=== PATIENT | female | born 1980 | race Caucasian/White ===

== ENCOUNTER → 2017-02-20 | Outpatient (CLI) | payer BC ==
[~2017-02-20] MED LIST: CETI10TA84 PO; DOCU-94 PO; FERR1TAB23 PO; PRENTAB26 PO
== END | disposition home or self-care (01) ==
LOC: C.LABSPEC 10:57
PROVIDERS: ATTEND Obstetrics & Gynecology
DX: Z34.03 Encounter for supervision of normal first pregnancy, third trimester (principal)

== ENCOUNTER 2017-03-20 09:09 | Inpatient (IN) | payer BC ==
[~2017-03-20] VITALS: Ht 172.7 cm; Wt 86.4 kg
[2017-03-20] MEDS ORDERED: LACTATED RINGER'S 1000ML 1,000 ML IV SCH (09:40)
[2017-03-20] MEDS ORDERED: LACTATED RINGER'S 1000ML 1,000 ML IV PRN (09:40)
[2017-03-20 10:22] LABS: HEMATOCRIT 36.9 % (37-47); MEAN CELL VOLUME 93.2 fL (80-100); MEAN CORPUSCULAR HEMOGLOBIN 31.3 pg (25-34); MEAN CORPUSCULAR HGB CONC 33.6 g/dl (32-36); MEAN PLATELET VOLUME 11.3 fL (7.4-10.4); PLATELET COUNT 150 K/uL (130-400); RED BLOOD COUNT 3.96 M/uL (4.2-5.4); WHITE BLOOD COUNT 12.33 K/uL (4.8-10.8)
[2017-03-20] MEDS ORDERED: FENTANYL 2MCG/ML ROPIV 1.25MG/ML 100ML BAG EPI ONE (10:53)
[2017-03-20] MEDS ORDERED: BUPIVACAINE 0.25% 30 ML VIAL ONE (10:53)
[2017-03-20] MEDS ORDERED: EpHEDrine SULFATE INJ 50 MG/ML AMP ONE (10:53)
[2017-03-20] MEDS ORDERED: FENTANYL CITRATE INJ 50 MCG/1 ML 2 ML VIAL ONE (10:54)
[2017-03-20] MEDS ORDERED: LACTATED RINGER'S 1000ML 500 ML IV PRN (11:41)
[2017-03-20] MEDS ORDERED: FENTANYL 2MCG/ML ROPIV 1.25MG/ML 100ML BAG EPI PRN (11:45)
[2017-03-20] MEDS ORDERED: NALOXONE HCL INJ 0.4 MG/1 ML VIAL/CARP IV PRN (11:45)
[2017-03-20] MEDS ORDERED: EpHEDrine SULFATE INJ 50 MG/ML AMP IV PRN (11:45)
[2017-03-20 12:26] VITALS: Ht 172.7 cm; Wt 86.4 kg
[2017-03-20] MEDS ORDERED: DOCU-94 PO (12:34)
[2017-03-20] MEDS ORDERED: FERR1TAB23 PO (12:34)
[2017-03-20] MEDS ORDERED: PRENTAB26 PO (12:34)
[2017-03-20] MEDS ORDERED: CETI10TA84 PO (12:34)
[2017-03-20] MEDS ORDERED: OXYTOCIN 30 UNITS/500ML NSS IV ONE (16:29)
[2017-03-20] MEDS ORDERED: DIPHTHERIA/TETANUS/PERTUSSIS 0.5 ML SYR/VIAL IM. ONE (17:45)
[2017-03-20] MEDS ORDERED: SUPERCREAM 0.870 % 15GM JAR EXT PRN (17:45)
[2017-03-20] MEDS ORDERED: BENZOCAINE 20% AER SPR 82.5 GM CAN EXT PRN (17:45)
[2017-03-20] MEDS ORDERED: OXYCODONE/ACETAMINOPHEN 5-325 TAB PO PRN (17:45)
[2017-03-20] MEDS ORDERED: OXYTOCIN 30 UNITS/500ML NSS IV PRN (17:45)
[2017-03-20] MEDS ORDERED: ACETAMINOPHEN/CODEINE 300/30MG TAB PO PRN ×2 (17:45)
[2017-03-20] MEDS ORDERED: LANOLIN OINT EXT PRN ×2 (17:45)
[2017-03-20] MEDS ORDERED: HYDROCORTISONE ACETATE 25 MG SUPP PR PRN (17:45)
[2017-03-20] MEDS ORDERED: ACETAMINOPHEN 325 MG TAB PO PRN (17:45)
--- NOTE | 2017-03-20 18:58 | Anesthesia Procedure Note ---
Anesthesia Epidural Removal Nt Date & Time Mar 20, 2017 at 18:57 Notes Mental Status: alert / awake / arousable, participated in evaluation Nausea / Vomiting: adequately controlled Pain: adequately controlled Airway Patency, RR, SpO2: stable & adequate BP & HR: stable & adequate Hydration State: stable & adequate Neuraxial Anesthesia: was administered Anesthetic Complications: no major complications apparent, pt satisfied with anesthetic care Epidural: removed without complications, with tip intact
[2017-03-20] MEDS: IBUPROFEN 600 MG TAB PO PRN (19:08)
--- NOTE | 2017-03-20 20:02 | DELIVERY SUMMARY ---
DATE OF OPERATION: 03/20/2017 VAGINAL DELIVERY NOTE Jennifer presented to labor and delivery, first baby, group B strep negative at 40 weeks and 1 day, in active labor with ruptured membranes. She progressed to 3 cm, requested epidural, received this and then soon after which progressed and fully dilated. She was then able to push and deliver a baby in left occiput anterior position. Clear fluid. No nuchal cord. Mouth and the nares suctioned with bulb. Baby delivered by gentle traction, no excessive force used. Live vigorous female . Cord clamped and cut. Cord gases sent. Cord blood sent. Placenta removed with gentle traction. IV Pitocin started. A second-degree tear repair with 3-0 Vicryl. There was a slight increase in bleeding after delivery, which resolved with the increase in the Pitocin rate and a bimanual exam of the uterus. Sponge and instrument counts correct. Estimated blood loss 350 mL. I attest to the content of the Intraoperative Record and any orders documented therein. Any exception s are noted below.
[2017-03-20 20:30] VITALS: BP 119/70; PULSE 62; TEMP 36.5
[2017-03-20] MEDS: DOCUSATE SODIUM 100 MG CAP PO SCH (20:44)
[2017-03-20 23:55] VITALS: BP 106/71; PULSE 76; TEMP 36.7; O2SAT 96
[2017-03-21 03:45] VITALS: BP 108/71; PULSE 80; TEMP 36.8; O2SAT 97
[2017-03-21] MEDS: IBUPROFEN 600 MG TAB PO PRN ×3 (06:05→22:43)
[2017-03-21 06:40] LABS: HEMATOCRIT 31.5 % (37-47)
--- NOTE | 2017-03-21 07:35 | Progress Note ---
Subjective Mar 21, 2017. Subjective conversation w/ patient, physical exam, chart review, lab review Ambulation: ambulating normally Voiding: no voiding problems Passing Gas: Yes Diet Tolerance: Regular Diet Lochia: Moderate Feeding Type: Breast Feeding Pain: CONTROLLED Review of Systems Respiratory: No shortness of breath Cardiac: No chest pain Abdomen: No nausea, No vomiting Female : No dysuria Objective Vital Signs Date Time Temp Pulse Resp B/P (MAP) Pulse Ox O2 Delivery O2 Flow Rate FiO2 03/21/17 03:45 36.8 80 18 108/71 (83) 97 Room Air 03/20/17 23:55 96 Room Air 03/20/17 23:55 36.7 76 16 106/71 (83) 96 Room Air 03/20/17 20:30 36.5 62 20 119/70 (86) Room Air 03/20/17 20:30 Room Air Physical Exam General Appearance: WELL-APPEARING, WD/WN, NO APPARENT DISTRESS Respiratory/Chest: lungs clear Cardiovascular: regular rate, rhythm Abdomen: normal bowel sounds, soft Fundus: Firm, Tender (appropriately tender), Relation to Umbilicus (1 below U) Extremities: no calf tenderness Laboratory Results Last 24 Hours Test 03/20/17 09:48 03/21/17 06:07 White Blood Count 12.33 K/uL Red Blood Count 3.96 M/uL Hemoglobin 12.4 g/dL 10.9 g/dL Hematocrit 36.9 % 31.5 % Mean Corpuscular Volume 93.2 fL Mean Corpuscular Hemoglobin 31.3 pg Mean Corpuscular Hemoglobin Concent 33.6 g/dl RDW Standard Deviation 44.1 fL RDW Coefficient of Variation 13.0 % Platelet Count 150 K/uL Mean Platelet Volume 11.3 fL Assessment and Plan Post- Day#: 1 Continue Routine Care: - Vital Signs reviewed and WNL. - Hemoglobin 10.9 - Blood Type: O-, GBS-, Rubella Immune. (Baby O-, rhogam not indicated at this time.) - Pt is doing well clinically. - Encourage Ambulation, Monitor and Control pain with Motrin PRN, Resume regular diet, Monitor Lochia - Encourage Breast Feeding. - Continue post care. TOBY LEACH PGY1 RESIDENT Resident Physician Supervision Note: I interviewed and examined the patient. Discussed with Dr. martha and agree with findings and plan as documented in the note. Any exceptions or clarifications are listed here: [None] Documented By: Ar Grant Resident Tracking Resident Involvement: Resident Care Provided Care Provided: OB Delivery
[2017-03-21 08:20] VITALS: BP 106/67; PULSE 91; TEMP 36.7
[2017-03-21] MEDS: PRENATAL VITAMIN TAB PO SCH (08:58)
[2017-03-21] MEDS: DOCUSATE SODIUM 100 MG CAP PO SCH ×2 (08:58→19:47)
--- NOTE | 2017-03-21 10:30 | Discharge Instructions ---
Discharge Instructions Date of Service Mar 21, 2017. Admission Reason for Admission: Labor Check Discharge Discharge Diagnosis / Problem: VAGINAL DELIVERY Discharge Goals Goal(s): Routine recovery after delivery Medications Continue Dispensed Medications: supercream, dermaplast, tucks, lansinoh Activity Recommendations Activity Limitations: per Instructions/Follow-up section . Instructions / Follow-Up Instructions / Follow-Up ACTIVITY RECOMMENDATIONS: * Gradual return to full activity over the next 2-3 weeks. * No lifting - nothing heavier than baby over the next 2-3 weeks. * Do not engage in vigorous exercise, sexual activity or sports until cleared by your physician. * Do not drive or operate any motorized equipment until cleared by your physician. * You may shower/bathe daily. MEDICATIONS: For discomfort or pain, you may use Acetaminophen (Tylenol), Ibuprofen (Advil), or Naproxen (Aleve) following the package directions. For constipation you may use Colace following the package directions. BREAST CARE: If you are not breast feeding: * Wear a supportive bra 24 hours a day for one to two weeks. * Avoid stimulating your breasts and nipples as much as possible during the first few weeks after delivery. * When taking a shower, have the warm water hit your back, not breasts. * When your breasts feel full, apply ice packs. Usually three to four times a day helps ease the discomfort. * Take a mild pain medication (Tylenol / Motrin) when you are uncomfortable. If breast feeding: * Use breast milk to lubricate nipples. Lansinoh cream may be used for sore nipples. You do not need to remove cream prior to breast feeding. If using a different brand of cream, check the label for directions regarding removal of cream prior to nursing. * Wear a supportive bra. * If having problems with breasts or breast feeding, call a inbound sales consultant or your health care provider. EPISIOTOMY CARE: After delivery, if you have an episiotomy (stitches), the following steps will ease discomfort and aid healing. * For the first 24 hours after delivery, place ice packs next to your episiotomy to help reduce swelling. * After the first 24 hour-period, sitz baths, either portable or in the tub, are suggested. A shower with a shower arm sprayed over the episiotomy may be comforting. * Megha care should be done after each voiding and bowel movement. Squirt warm water from a plastic bottle over the perineum (region of the body between the anus and urinary opening) and pat dry. * Use Dermoplast to ease discomfort. Shake container. [place] directly over the episiotomy. Place a Tucks on a clean sanitary pad next to your episiotomy. SPECIAL CARE INSTRUCTIONS: When you are discharged from the hospital, it is important for you to follow the instructions listed below: * During the first week at home, you should be able to care for yourself and your baby. In addition, the usual light household activities are encouraged. * Limit your activities to the way you feel. Do not try to clean the house or move furniture. Be sensible. * If you actively engage in sports and have done so up until the time of your delivery, you may resume these activities as soon as you feel able. This may take up to one month or even longer. Use good judgment. * Continue to take your vitamins for at least six weeks after the of your baby. * Your diet need not be limited unless you were on a special diet before your delivery. Breast-feeding mothers need around 2500 calories per day and at least 64-80 ounces of fluid per day (8 to 10 glasses). * You should eat foods from the four major food groups. Crash diets or fad diets are to be avoided. Eating lean meats, fresh fruits and vegetables, low-fat dairy products, high fiber foods and a regular exercise program, will help you get back to your pre- weight without putting your health at risk. * Constipation is sometimes a problem after delivery. Take a mild laxative as needed. If breast feeding, Milk of Magnesia is acceptable to use. You may use a suppository or Fleets enema if no episiotomy. * A daily shower or tub bath is suggested. Be sure to thoroughly and gently dry the perineum. * A bloody vaginal discharge will usually continue until around four weeks post . A small amount of bleeding may continue for as long as six weeks. Vaginal discharge changes from the bright red bleeding after delivery to pink then brownish and finally yellowish-pink before becoming white and disappearing. * Bleeding may increase with activity. Your first period may come in 4-8 weeks. If you are breast feeding, your period may be delayed even longer. * [place] (sex) can begin whenever both you and your partner feel comfortable and do not have any form of genital infection. It is recommended that you wait at least six weeks for internal and external healing to occur. If you have questions, please talk to your health care practitioner. A condom should be used to prevent infection and . * Foreplay, gentle intercourse and lubrication is very important the first several times to prevent pain. A water-based lubricant such as K-Y jelly or Astroglide may be used. * If you have RH negative blood and your baby is RH positive, you will receive RHOGAM by injection prior to discharge. The nurse will give you a card to keep with you that has the date and place that you received RHOGAM after delivery. * During your care, you had a Rubella screen done to check for the presence of rubella antibodies in your blood. If your test was negative, you will receive a Rubella vaccine prior to discharge. This vaccine may cause a fever, soreness at the injection site and flu-like symptoms. If these symptoms persist, notify your health care practitioner. is not advised for one month after a Rubella vaccine. * Verbalizes understanding of car seat law as reviewed with patient nursing. * Car Seat hand-out given and reviewed with patient by nursing. * Shaken baby information reviewed with patient by nursing. Call you doctor if: * Heavy bleeding (saturating several pads an hour) or passing clots the size of your fist. * A fever >101 degrees F (38.3 degrees C) on two occasions four hours apart and /or chills. * Unusual pain in the pelvic or vaginal areas. * "Baby Blues" lasting longer than two weeks. If you have any questions or concerns, call your health care practitioner at . FOLLOW UP VISIT: * Please call the office at to schedule a 6 week examination. It is important you keep this appointment. It is important for you to make arrangements for either yearly or twice yearly check-ups thereafter. Current Hospital Diet Patient's current hospital diet: Regular OB Diet Discharge Diet Recommended Diet: Regular Diet Procedures Procedures Performed: MMR VACCINE GIVEN Pending Studies Studies pending at discharge: no Medical Emergencies . Who to Call and When: Medical Emergencies: If at any time you feel your situation is an emergency, please call 911 immediately. . Non-Emergent Contact Non-Emergency issues call your: Primary Care Provider . . "Provider Documentation" section prepared by Isabella Pacheco. . VTE Core Measure Inpt VTE Proph given/why not?: Treatment not indicated
[2017-03-21 15:00] VITALS: BP 98/63; PULSE 80; TEMP 36.6
[2017-03-21 19:30] VITALS: BP 111/71; PULSE 89; TEMP 36.5
[2017-03-21] MEDS ORDERED: BISACODYL 5 MG TABEC PO SCH (20:00)
[2017-03-21 22:45] VITALS: BP 111/72; PULSE 80; TEMP 36.7
[2017-03-22] MEDS ORDERED: BISACODYL 10 MG SUPP PR PRN (07:00)
[2017-03-22 07:28] VITALS: BP 111/72; PULSE 70; TEMP 36.5; O2SAT 97
--- NOTE | 2017-03-22 07:51 | Progress Note ---
Subjective Mar 22, 2017. Subjective conversation w/ patient, physical exam, chart review, lab review Voiding: no voiding problems Diet Tolerance: Regular Diet Lochia: Moderate Feeding Type: Breast Feeding Pain: CONTROLLED Review of Systems Respiratory: No shortness of breath Cardiac: No chest pain Abdomen: No nausea, No vomiting Female : No dysuria Objective Vital Signs Date Time Temp Pulse Resp B/P (MAP) Pulse Ox O2 Delivery O2 Flow Rate FiO2 03/22/17 07:28 36.5 70 20 111/72 (85) 97 Room Air 03/21/17 22:45 Room Air 03/21/17 22:45 36.7 80 18 111/72 (85) Room Air 03/21/17 19:30 36.5 89 18 111/71 (84) Room Air 03/21/17 15:00 Room Air 03/21/17 15:00 36.6 80 18 98/63 (75) Room Air 03/21/17 08:20 Room Air 03/21/17 08:20 36.7 91 18 106/67 (80) Room Air Physical Exam General Appearance: WELL-APPEARING, WD/WN, NO APPARENT DISTRESS Respiratory/Chest: lungs clear, normal breath sounds, no respiratory distress Cardiovascular: regular rate, rhythm Abdomen: normal bowel sounds, soft Fundus: Firm, Non-Tender, Relation to Umbilicus (2 BELOW U) Extremities: no calf tenderness Assessment and Plan Post- Day#: 2 Continue Routine Care: - Vital Signs reviewed and WNL. - Blood Type: O-, GBS-, Rubella Immune. Baby is Rh -, no rhogam indicated at this time. - Ordered MMR vaccination to be given before dc. - Pt is doing well clinically. - Encourage Ambulation, Monitor and Control pain with Motrin PRN, Resume regular diet, Monitor Lochia - Encourage Breast Feeding. - Pt counselled on discharge instructions TOBY PACHECO PGY1 FM RESIDENT Resident Physician Supervision Note: I interviewed and examined the patient. Discussed with Dr. Pacheco and agree with findings and plan as documented in the note. Any exceptions or clarifications are listed here: [None] Documented By: Shawn Joyner
[2017-03-22] MEDS ORDERED: MEASLES, MUMPS & RUBELLA VIRUS VIAL SQ. ONE (08:00)
[2017-03-22] MEDS: DOCUSATE SODIUM 100 MG CAP PO SCH (08:30)
[2017-03-22] MEDS: PRENATAL VITAMIN TAB PO SCH (08:30)
[2017-03-22 08:50] VITALS: O2SAT 97
[2017-03-22] MEDS: IBUPROFEN 600 MG TAB PO PRN (12:21)
[2017-03-22 15:00] VITALS: BP_DIAS 72; PULSE 70; TEMP 36.5
== END 2017-03-22 15:15 | disposition home or self-care (01) | DRG 775 ==
LOC: C.OPB 09:09 → C.LD 09:10 → C.OPB 09:41 → C.OBG 20:02
PROVIDERS: ADMIT Obstetrics & Gynecology; ATTEND Obstetrics & Gynecology
PROC: 0KQM0ZZ Repair Perineum Muscle, Open Approach (ICD-10-PCS; principal; 2017-03-20)
PROC: 10E0XZZ Delivery of Products of Conception, External Approach (ICD-10-PCS; principal; 2017-03-20)
DX: O70.1 Second degree perineal laceration during delivery (principal); Z3A.40 40 weeks gestation of pregnancy; Z37.0 Single live birth

== ENCOUNTER 2020-03-02 10:09 | Inpatient (IN) ==
[2020-03-02] MEDS ORDERED: OXYTOCIN 30 UNITS/500 ML BAG IV PRN ×3 (10:13→17:53)
[2020-03-02] MEDS ORDERED: miSOPROStoL 25 MCG TAB PV PRN (10:16)
--- NOTE | 2020-03-02 10:27 | History & Physical Report ---
Date of Service March 02, 2020 Assessment & Plan (1) Encounter for induction of labor: PNL: Rh pos (rhogam administered 12/24/19), RI, GBS neg, COVID pending Pt with cholestasis during . Will proceed with IOL. Admit, labs, start IV Epidural when desired; anesthesiology consult placed Proceed with induction of labor per Pitocin augmentation protocol. Anticipate (2) Cholestasis during , antepartum: IOL as noted above (3) Rh negative, maternal: Rhogam administered 12/24/19 Plan for repeat rhogam 72 hours post delivery if baby is D-pos Admission and Anticipated Discharge Date Admission Date: March 02, 2020 History of Present Illness Primary Care Provider: NO PCP Jennifer Springer is a 39 y/o female currently at 38 WGA with an CHERISE 03/16/20 as determined by LMP who is here for IOL due to cholestasis. Pt reported itching last week and labs were collectd; lab results showed cholic acid 31.1, deoxycholic acid 0.6, chenodeoxycholic acid 9.2, and total bile acids 41.0. Due to cholestasis in with bile acids > 40, and with pt being a 38 WGA, she presents to L&D for IOL. Her has also been complicated by AMA, RH- (rhogam administered 12/24/19), and placenta previa resolved at 32 week u/s. Pt does desire an epidural for pain management during L&D. She is planning to breastfeed. - regular contractions (reports some irregular ctx x1 week); + movement; - fluid loss; - bloody show Had regular appointments with OB. Blood type: O- Antibody screen: neg Labs 08/13/19 Rubella: immune VDRL/RPR: nonreactive Gonorrhea: neg Chlamydia: neg HIV: neg HbSAg: neg HPV: neg GBS: negative 02/18/20 COVID-19 pending Other screens: cff-DNA: low risk, male - CF/SMA Allergies Allergy/AdvReac Type Severity Reaction Status Date / Time No Known Drug Allergies Allergy Verified 02/25/20 10:47 Home Medications Home Medications Medication Instructions Recorded Confirmed Type docusate sodium 100 mg PO DAILY 03/02/20 03/02/20 History ferrous sulfate 324 mg PO DAILY 03/02/20 03/02/20 History prenat.vits,kalen,opt-pfkw-zvrop 1 tab PO DAILY 03/02/20 03/02/20 History [ Vitamin] Patient History Medical History (Updated 03/02/20 @ 10:50 by Jeannette Romero DO) Chicken pox Encounter for anatomic survey History of anemia Low lying placenta without hemorrhage, antepartum Normal labor Surgical History S/P wisdom tooth extraction Social History Smoking Status: Never smoker Hx Alcohol Use: No Hx Substance Use: No marital status: marital status details: Tyler Carvalho (36) [phone] Current Living Situation: Spouse Current Living Situation Comment: lives with spouse, daughter, 1 dog. current occupational status: employed current occupation: Teacher @ [employer] OB History G1: delivered 03/20/17 at 40 weeks, female, 8 lb 0 oz, with epidural, delivered at [facility] with Dr. Grant Review of Systems Denies fever or chills. + diffuse itching Denies shortness of breath or cough. Denies chest pain. Denies breast pain. Denies dysuria or hematuria. Denies leg pain or leg swelling. Denies headache or changes in vision. Physical Exam Physical Exam: General: Alert, oriented. No acute distress. Cardiac: Regular rate and rhythm, no murmurs/rubs/gallops. Respiratory: Clear to auscultation bilaterally a/p, no wheezes/rales/rhonchi. No increased work of breathing. Symmetrical chest rise. No respiratory distress. Abdomen: Gravid. Vertex position. + heart tones. - palpable contractions. EFW 7-8# Pelvic: Dilation 2cm; Effacement 75%; Station -2; soft; posterior per Dr. Joyner External FHT and external uterine monitors used; Category II tracing; moderate FHT variability, + accels. Lower Extremities: No lower extremity edema or swelling. No deep calf pain. See's negative bilaterally Results & Data ([facility]) Laboratory Results Labs at admission today H.6 Hct: 33.4% WBC: 12.5 Plt: 202 Supervising Physician Co-Signing Physician Notes Resident Physician Supervision Note: I was present with Dr. Romero during the history and exam. I discussed the case with the resident and agree with the findings and plan as documented in the note. Any exceptions or clarifications are listed here: at 38 weeks GA newly dx'd with cholestasis of . Will check LFT's, discussed induction with patient. Anticipate Documented By: Shawn Joyner Jr, MD, FACOG
[2020-03-02 10:43] LABS: Hematocrit (blood only) 33.4 % (37-47); Hemoglobin 11.6 g/dL (12.0-16.0); Mean Corpuscular Hemoglobin 32.3 pg (25-34); Mean Platelet Volume 11.1 fL (7.4-10.4); Platelet Count 202 K/uL (130-400); RDW Standard Deviation 44.8 fL (36.4-46.3); Red Blood Count 3.59 M/uL (4.2-5.4)
[2020-03-02 10:51] LABS: Mean Corpuscular Hgb Conc 34.7 g/dL (32-36)
[2020-03-02] MEDS: LACTATED RINGER'S 1,000 ML IV PRN ×2 (10:59→14:05)
[2020-03-02 11:06] LABS: Albumin Level 2.4 gm/dl (3.4-5.0); BUN Creatinine Ratio 11.3 (10-20); Bilirubin Direct 0.5 mg/dl (0-0.2); Blood Urea Nitrogen 8 mg/dl (7-18); Carbon Dioxide 20 mmol/L (21-32); Chloride 109 mmol/L (98-107); Est GFR (African American) 127.1; Est GFR (Non-African American) 109.7; Glucose 82 mg/dl (70-99); Potassium 3.8 mmol/L (3.5-5.1); Sodium 138 mmol/L (136-145)
[2020-03-02 11:10] LABS: Alanine Aminotransferase 25 U/L (12-78); Albumin Globulin Ratio 0.6 (0.9-2); Alkaline Phosphatase 241 U/L (45-117); Aspartate Aminotransferase 23 U/L (15-37); Bilirubin,Total 0.9 mg/dl (0.2-1); Globulin 4.2 gm/dl (2.5-4.0); Total Protein 6.6 gm/dl (6.4-8.2)
--- NOTE | 2020-03-02 12:20 | Labor Progress Brief Note ---
Date of Service March 02, 2020 Subjective Reason For Note: Routine Evaluation Assessment & Plan (1) Cholestasis during , antepartum: - tracing Cat II, moderate variability - continue induction Admission and Anticipated Discharge Date Admission Date: March 02, 2020 Physical Exam Genitourinary: OB Exam Monitor Tracing: + category II and + normal FHT variability Cervix: no change, AROM, clear, IUPC placed Results & Data ([facility]) Vital Signs (Past 12 Hours) Vital Signs Temp Pulse Resp BP 03/02/20 10:52 88 100/67 03/02/20 10:51 98.1 F 18 Coding Level of Care Code None Diagnoses Cholestasis during , antepartum O26.619; K83.1
[2020-03-02] MEDS ORDERED: ePHEDrine sulfate 50 MG/ML AMP ONE (13:27)
[2020-03-02] MEDS ORDERED: fentaNYL citrate 100 MCG/2 ML VIAL ONE (13:28)
[2020-03-02] MEDS ORDERED: BUPIVACAINE 0.25% 30 ML VIAL ONE (13:28)
[2020-03-02] MEDS ORDERED: fentaNYL 2MCG/ML ROPIV 1.25MG/ML 100 ML BAG EPI ONE (13:29)
[2020-03-02] MEDS ORDERED: NALOXONE HCL 1 MG in SODIUM CHLORIDE 0.9% 1000ML 1,000 ML IV PRN (13:43)
[2020-03-02] MEDS ORDERED: DiphenhydrAMINE HCL 50 MG/ML VIAL IV PRN (13:43)
[2020-03-02] MEDS ORDERED: fentaNYL 2MCG/ML ROPIV 1.25MG/ML 100 ML BAG EPI PRN (13:43)
[2020-03-02] MEDS ORDERED: NALOXONE HCL 0.4 MG/1 ML VIAL/CARP IV PRN (13:43)
[2020-03-02] MEDS ORDERED: ONDANSETRON INJ 2 MG/ML 2 ML VIAL IV PRN (13:43)
[2020-03-02] MEDS ORDERED: ePHEDrine sulfate 50 MG/ML AMP IV PRN (13:43)
--- NOTE | 2020-03-02 13:43 | Anesthesiology Consultation ---
Date of Service March 02, 2020 Assessment & Plan ASA ASA2 Proposed Anesthesia Anesthesia Type: Labor Epidural Risk / Benefits Reviewed With: PT / POA / Parent / Guardian, Accepts Plan and Informed Consent Obtained History Height/Weight Height: 5 ft 8 in Weight: 83.007 kg Allergies Allergy/AdvReac Type Severity Reaction Status Date / Time No Known Drug Allergies Allergy Verified 02/25/20 10:47 Medications Home Medications Medication Instructions Recorded Confirmed Last Taken docusate sodium 100 mg PO DAILY 03/02/20 03/02/20 03/01/20 1000 ferrous sulfate 324 mg PO DAILY 03/02/20 03/02/20 03/01/20 10:00 prenat.vits,kalen,vgt-yteu-ffide 1 tab PO DAILY 03/02/20 03/02/20 03/01/20 [ Vitamin] 1000 Active Medications Generic Name Dose Route Start Last Admin Trade Name Freq PRN Reason Stop Dose Admin Lactated Ringer's 1,000 mls @ 125 mls/hr 03/02/20 10:13 03/02/20 14:05 Lr IV 03/04/20 10:12 999 mls/hr .Q8H PRN Administration L&D Protocol Protocol Oxytocin 30 units in 500 mls @ 7 mls/hr 03/02/20 10:15 03/02/20 13:00 Pitocin IV 03/04/20 10:14 0.42 units/hr .Q24H PRN 7 mls/hr Labor Induction/Augmentation Titration Protocol 0.42 UNITS/HR Ropivacaine 100 ml 03/02/20 13:43 03/02/20 14:08 Fentanyl 2mcg/Ml Ropiv 1.25mg/Ml 100 Ml Bag EPI 03/03/20 13:42 12 ml PRN PRN Administration Pain R/T Labor Protocol Past Medical History Medical History Chicken pox Encounter for anatomic survey History of anemia Low lying placenta without hemorrhage, antepartum Normal labor Exercise / Class Metabolic Activity II 4-5 Yardwork/Stairs/Walk up hill Past Surgical History Surgical History S/P wisdom tooth extraction Past Anesthesia History No Hx of Anesthesia Complications and No Family Hx of Anesthesia Complications History of PONV No Hx of PONV and No Hx of Motion Sickness Social History Smoking Status: Never smoker Hx Alcohol Use: No Hx Substance Use: No Review of Systems denies fever/cough/ colds/ chest pain/ SOB/ PARVEEN Constitutional: no fever and no chills Respiratory: no cough and no dyspnea denies PARVEEN Cardiovascular: no chest pain and no dyspnea on exertion Physical Exam Vital Signs Last Vital Signs Temp 36.7 C 03/02/20 10:51 Pulse 83 03/02/20 14:10 Resp 18 03/02/20 12:06 BP 91/55 L 03/02/20 14:10 Pulse Ox 99 03/02/20 14:09 ENMT Mouth: no TMJ abnormality and no dentition abnormality Thyromental Distance: > or= 3.5 Finger Breadths Mallampati Class: II Neck neck extension not limited Respiratory normal respiratory effort; no respiratory distress Auscultation: lungs clear to auscultation bilaterally Cardiovascular Rate/Rhythm: regular rate and regular rhythm Neurologic moves all extremities Psychiatric Orientation: alert and oriented x 3 Testing Laboratory Results 03/02/20 10:33 03/02/20 10:33
--- NOTE | 2020-03-02 17:08 | Labor Progress Brief Note ---
Date of Service March 02, 2020 Subjective Reason For Note: Routine Evaluation Assessment & Plan (1) Cholestasis during , antepartum: - tracing Cat II - complete - begin 2nd stage Admission and Anticipated Discharge Date Admission Date: March 02, 2020 Physical Exam Genitourinary: Cervix: complete/(+)2/OA Results & Data ([facility]) Vital Signs (Past 12 Hours) Vital Signs Temp Pulse Resp BP Pulse Ox 03/02/20 17:05 72 115/67 03/02/20 17:04 77 100 03/02/20 16:59 68 99 03/02/20 16:55 74 85/51 L 03/02/20 16:54 72 100 03/02/20 16:49 71 99 03/02/20 16:44 66 99 03/02/20 16:39 66 99 03/02/20 16:38 65 95/53 L 03/02/20 16:34 72 100 03/02/20 16:29 69 99 03/02/20 16:24 63 93/50 L 99 03/02/20 16:20 72 98/52 L 03/02/20 16:19 76 95 03/02/20 16:14 76 97 03/02/20 16:13 85 92/59 L 03/02/20 16:09 79 109/60 99 03/02/20 16:05 76 106/59 L 03/02/20 16:04 71 97 03/02/20 16:00 74 18 95/58 L 03/02/20 15:59 69 96 03/02/20 15:55 71 92/57 L 03/02/20 15:54 73 96 03/02/20 15:49 68 103/59 L 97 03/02/20 15:44 68 100/63 99 03/02/20 15:42 73 94 03/02/20 15:39 80 93/66 L 100 03/02/20 15:36 84 93 03/02/20 15:34 77 99 03/02/20 15:33 75 94/60 L 03/02/20 15:30 75 18 102/64 03/02/20 15:29 79 98 03/02/20 15:28 93 H 93 03/02/20 15:24 79 100/63 100 03/02/20 15:19 81 99 03/02/20 15:18 75 104/61 03/02/20 15:15 86 99/62 L 03/02/20 15:14 79 98 03/02/20 15:09 74 92/59 L 99 03/02/20 15:05 80 101/59 L 03/02/20 15:04 88 99 03/02/20 15:02 85 91/61 L 03/02/20 15:00 88 18 84/51 L 03/02/20 14:59 82 87/55 L 99 03/02/20 14:54 84 98 03/02/20 14:53 80 89/53 L 03/02/20 14:50 96 H 91/52 L 03/02/20 14:49 80 99 03/02/20 14:44 85 100 03/02/20 14:43 81 93/55 L 03/02/20 14:40 88 94/53 L 03/02/20 14:39 81 99 03/02/20 14:35 81 96/55 L 03/02/20 14:34 82 99 03/02/20 14:29 95 H 98 03/02/20 14:28 90 94/56 L 03/02/20 14:25 86 91/55 L 03/02/20 14:24 98.8 F 86 18 93/53 L 98 03/02/20 14:22 96 H 87/56 L 03/02/20 14:19 80 96/54 L 98 03/02/20 14:16 85 97/55 L 03/02/20 14:14 79 99 03/02/20 14:13 86 94/56 L 03/02/20 14:10 83 91/55 L 03/02/20 14:09 83 99 03/02/20 14:07 77 99/57 L 03/02/20 14:04 86 108/68 100 03/02/20 14:01 88 111/70 03/02/20 13:59 87 100 03/02/20 13:54 83 100 03/02/20 13:49 83 98 03/02/20 13:44 75 97 03/02/20 13:43 83 110/70 03/02/20 12:23 78 100/60 03/02/20 12:06 18 03/02/20 11:30 18 03/02/20 11:05 18 03/02/20 10:52 88 100/67 03/02/20 10:51 98.1 F 18 Coding Level of Care Code None Diagnoses Cholestasis during , antepartum O26.619; K83.1
--- NOTE | 2020-03-02 17:44 | Delivery Summary ---
Vaginal Delivery Summary Date of Service March 02, 2020 Vaginal Delivery Summary Findings: Viable male with Apgars of 10 and 10, nuchal cord x1 reduced on the perineum. Cord gases pending. Midline second-degree laceration and small periurethral laceration both repaired with interrupted 4-0 Vicryl sutures. Estimated blood loss 300 cc. Placenta delivered spontaneously and sent for pathological evaluation. Labor note: Jennifer Springer is a 39 y/o female currently at 38 WGA with an CHERISE 03/16/20 as determined by LMP who is here for IOL due to cholestasis. Pt reported itching last week and labs were collectd; lab results showed cholic acid 31.1, deoxycholic acid 0.6, chenodeoxycholic acid 9.2, and total bile acids 41.0. Due to cholestasis in with bile acids > 40, and with pt being a 38 WGA, she presents to L&D for IOL. Her has also been complicated by AMA, RH- (rhogam administered 12/24/19), and placenta previa resolved at 32 week u/s. Pt does desire an epidural for pain management during L&D. She is planning to breastfeed. - regular contractions (reports some irregular ctx x1 week); + movement; - fluid loss; - bloody show Had regular appointments with OB. Blood type: O- Antibody screen: neg Labs 08/13/19 Rubella: immune VDRL/RPR: nonreactive Gonorrhea: neg Chlamydia: neg HIV: neg HbSAg: neg HPV: neg GBS: negative 02/18/20 COVID-19 pending Other screens: cff-DNA: low risk, male - CF/SMA Upon admission the patient was 2 to 3 cm dilated. Tracing was category 2 with variability and accelerations. Artificial rupture membranes for clear fluid and intrauterine pressure catheter was placed. Pitocin was initiated per induction protocol. Patient progressed into a regular labor pattern and became uncomfortable. Anesthesia was consulted and an epidural was placed. The patient progressed to full dilatation and began her second stage. She pushed for approximately 10 minutes delivering the viable male . Cord was clamped and cut. Cord gases cord blood samples were obtained. Placenta was delivered spontaneously and sent for pathological evaluation. Inspection of the perineum showed a midline second-degree laceration and a small midline periure thral laceration. Both lacerations were repaired with interrupted 4-0 Vicryl sutures. Estimated blood loss was 300 cc. Sponge and needle count was correct. [facility] Vaginal Delivery Charge Vaginal Delivery Codes: 38182 global code for the antepartum, delivery, and post-
[2020-03-02] MEDS ORDERED: HYDROCORTISONE ACETATE 25 MG SUPP PR PRN (17:53)
[2020-03-02] MEDS ORDERED: ACETAMINOPHEN 325 MG TAB PO PRN (17:53)
[2020-03-02] MEDS ORDERED: ACETAMINOPHEN W/CODEINE #3 1 TAB PO PRN (17:53)
[2020-03-02] MEDS ORDERED: SUPERCREAM 0.870% 15 GM JAR EXT PRN (17:53)
[2020-03-02] MEDS ORDERED: BENZOCAINE 20% AER SPR 82.5 GM CAN EXT PRN (17:53)
[2020-03-02] MEDS ORDERED: DIPHTHERIA/TETANUS/PERTUSSIS 0.5 ML SYR/VIAL IM ONE (17:53)
[2020-03-02 18:01] LABS: Base Excess Cord Arterial Bld -3.2 mEq/L (-9-1.8); CO2 Cord Arterial Blood 54 mmHg (39.1-73.5); HCO3 Cord Arterial Blood 24 mmol/L (19.7-28.5); PO2 Cord Arterial Blood 27 mmHg (4.1-31.7); pH Cord Arterial Blood 7.27 (7.1-7.38)
[2020-03-02 18:02] LABS: Oxygen Sat Cord Arterial Blood < 60.0 % (<60)
[2020-03-02 18:06] LABS: Base Excess Cord Venous Blood -2.4 mEq/L (-7.7-1.9); Cord Venous Blood HCO3 22 mmol/L (18.4-26.8); Cord Venous Blood PCO2 38 mmHg (30.4-57.2); Cord Venous Blood PO2 36 mmHg (14.1-43.3); Cord Venous Blood pH 7.39 (7.20-7.44)
--- NOTE | 2020-03-02 18:18 | Anesthesiology Progress Note ---
Date of Service March 02, 2020 Anesthesia Post Procedure Vital Signs Vital Signs: Temp Pulse Resp BP Pulse Ox 03/02/20 18:09 78 113/68 03/02/20 17:56 68 110/56 L 03/02/20 17:54 69 88/67 L 03/02/20 17:39 70 100/64 99 03/02/20 17:34 77 99 03/02/20 17:29 77 100 03/02/20 17:24 93 H 100/63 98 03/02/20 17:19 87 79 L 03/02/20 17:18 87 87 L 03/02/20 17:14 88 100 03/02/20 17:09 74 108/58 L 100 03/02/20 17:05 72 115/67 03/02/20 17:04 77 100 03/02/20 17:00 18 03/02/20 16:59 68 99 03/02/20 16:55 74 85/51 L 03/02/20 16:54 72 100 03/02/20 16:49 71 99 03/02/20 16:44 66 99 03/02/20 16:39 66 99 03/02/20 16:38 65 95/53 L 03/02/20 16:34 72 100 03/02/20 16:30 18 03/02/20 16:29 69 99 03/02/20 16:24 63 93/50 L 99 03/02/20 16:20 72 98/52 L 03/02/20 16:19 76 95 03/02/20 16:17 18 03/02/20 16:14 76 97 03/02/20 16:13 85 92/59 L 03/02/20 16:09 79 109/60 99 03/02/20 16:05 76 106/59 L 03/02/20 16:04 71 97 03/02/20 16:00 74 18 95/58 L 03/02/20 15:59 69 96 03/02/20 15:55 71 92/57 L 03/02/20 15:54 73 96 03/02/20 15:49 68 103/59 L 97 03/02/20 15:44 68 100/63 99 03/02/20 15:42 73 94 03/02/20 15:39 80 93/66 L 100 03/02/20 15:36 84 93 03/02/20 15:34 77 99 03/02/20 15:33 75 94/60 L 03/02/20 15:30 75 18 102/64 03/02/20 15:29 79 98 03/02/20 15:28 93 H 93 03/02/20 15:24 79 100/63 100 03/02/20 15:19 81 99 03/02/20 15:18 75 104/61 03/02/20 15:15 86 99/62 L 03/02/20 15:14 79 98 03/02/20 15:09 74 92/59 L 99 03/02/20 15:05 80 101/59 L 03/02/20 15:04 88 99 03/02/20 15:02 85 91/61 L 03/02/20 15:00 88 18 84/51 L 03/02/20 14:59 82 87/55 L 99 03/02/20 14:54 84 98 03/02/20 14:53 80 89/53 L 03/02/20 14:50 96 H 91/52 L 03/02/20 14:49 80 99 03/02/20 14:44 85 100 03/02/20 14:43 81 93/55 L 03/02/20 14:40 88 94/53 L 03/02/20 14:39 81 99 03/02/20 14:35 81 96/55 L 03/02/20 14:34 82 99 03/02/20 14:29 95 H 98 03/02/20 14:28 90 94/56 L 03/02/20 14:25 86 91/55 L 03/02/20 14:24 37.1 C 86 18 93/53 L 98 03/02/20 14:22 96 H 87/56 L 03/02/20 14:19 80 96/54 L 98 03/02/20 14:16 85 97/55 L 03/02/20 14:14 79 99 03/02/20 14:13 86 94/56 L 03/02/20 14:10 83 91/55 L 03/02/20 14:09 83 99 03/02/20 14:07 77 99/57 L 03/02/20 14:04 86 108/68 100 03/02/20 14:01 88 111/70 03/02/20 13:59 87 100 03/02/20 13:54 83 100 03/02/20 13:49 83 98 03/02/20 13:44 75 97 03/02/20 13:43 83 110/70 03/02/20 12:23 78 100/60 03/02/20 12:06 18 03/02/20 11:30 18 03/02/20 11:05 18 03/02/20 10:52 88 100/67 03/02/20 10:51 36.7 C 18 Pain Intensity Lower Abdomen: Pain Intensity: 0 Transfer of Care Handoff Completed per policy Notes Mental Status: alert / awake / arousable and participated in evaluation Patient Amnestic to Procedure: Yes Nausea / Vomiting: adequately controlled Pain: adequately controlled Airway Patency, RR, SpO2: stable & adequate BP & HR: stable & adequate Hydration State: stable & adequate Anesthetic Complications: no major complications apparent and Pt Satisfied with anesthetic care
[2020-03-02] MEDS: DOCUSATE SODIUM 100 MG CAP PO SCH (21:19)
[2020-03-03] MEDS: IBUPROFEN 600 MG TAB PO PRN ×3 (01:00→20:50)
--- NOTE | 2020-03-03 07:16 | Obstetrical Progress Note ---
Date of Service <Jeannette CrowellLory Florescalixtomurphy - Last Filed: 03/03/20 07:45> March 03, 2020 Assessment & Plan <Jeannette CrowellLory Floresabdirizak - Last Filed: 03/03/20 07:45> (1) Normal course: - PNL: Rh neg, RI, GBS neg, COVID neg - Feels well today. Eating well, voiding well, ambulating well. - Pain well controlled with ibuprofen 600mg Q4H PRN - Routine care -- OOB, ambulation, diet progression as tolerated - After discharge will have 6 week follow-up with Dr. Joyner. (2) Rh negative, maternal: Pt received Rhogam 12/24/2019. Will plan to give pt another dose of Rhogam at 72h post delivery if baby is D- pos. Subjective <Jeannette CrowellLory Romero - Last Filed: 03/03/20 07:45> Jennifer Springer is a 39 y/o female who is PPD #1 following with epidural after IOL due to cholestasis in at 38 weeks. She reports feeling well overall this morning. Minimal abdominal cramping and 0/10 pain well managed on analgesics. Voiding without dysuria or difficulty. Tolerating meals overnight without nausea or vomiting. Patient has been able to ambulate some. - passing gas and - bowel movement. Has persistent lochia with some improvement this morning. Currently . Review of Systems Denies fever or chills. Denies shortness of breath or cough. Denies chest pain. Denies breast pain. Denies dysuria. Denies leg pain or leg swelling. Denies headache or changes in vision. Physical Exam <Jeannette CrowellLory Romero - Last Filed: 03/03/20 07:45> General: Alert, oriented. No acute distress. Cardiac: Regular rate and rhythm. No murmurs. Respiratory: Clear to auscultation bilaterally a/p, no wheezes/rales/rhonchi. No increased work of breathing. Symmetrical chest rise. No respiratory distress. Abdomen: Soft, nontender, nondistended. Bowel sounds present. Uterus: Uterine fundus firm, palpable at umbilicus on right. Lower Extremities: No lower extremity edema or swelling. No deep calf pain. See's negative bilaterally. Results & Data ([facility]) <Jeannette Romero DO - Last Filed: 03/03/20 07:45> Vital Signs (Past 12 Hours) Vital Signs Temp Pulse Pulse Resp BP BP Pulse Ox 03/03/20 03:30 36.4 C L 75 16 101/67 97 03/02/20 23:50 36.4 C L 81 16 101/64 97 03/02/20 20:50 36.7 C 76 16 108/66 98 03/02/20 20:25 36.7 C 74 20 98/61 L 03/02/20 19:38 74 104/65 03/02/20 19:24 78 103/61 <Shawn Joyner Jr, MD, FACOG - Last Filed: 03/03/20 08:12> Co-Signing Physician Notes Resident Physician Supervision Note: I was present with Dr. Romero during the history and exam. I discussed the case with the resident and agree with the findings and plan as documented in the note. Any exceptions or clarifications are listed here: Doing well, pt desires d/c. Instructions given. Will check Bile Salts Documented By: Shawn Joyner Jr, MD, FACOG
[2020-03-03] MEDS: FERROUS SULFATE 325 MG TAB PO SCH (07:57)
[2020-03-03] MEDS: DOCUSATE SODIUM 100 MG CAP PO SCH ×2 (07:58→20:51)
[2020-03-03] MEDS: PRENATAL VITAMIN 1 TAB PO SCH (07:58)
[2020-03-03] MEDS ORDERED: bisacodyL 5 MG TABEC PO SCH (20:00)
--- NOTE | 2020-03-04 06:05 | Obstetrical Progress Note ---
Date of Service <Jeannette Romero DO - Last Filed: 03/04/20 07:27> March 04, 2020 Assessment & Plan <Jeannette Romero DO - Last Filed: 03/04/20 07:27> (1) Normal course: - PNL: Rh negative, RI, GBS neg, COVID neg - IOL at 38w due to cholestasis. Pt with some recurrent itching. Will check LFTs prior to d/c. - H/H 9.6/.3 this morning. Will start patient on supplemental iron po. - Feels well today. Eating well, voiding well, ambulating well. - Pain well controlled with ibuprofen 600mg Q4H PRN - Routine care -- OOB, ambulation, diet progression as tolerated - After discharge will have 6 week follow-up with Dr. Joyner. - Plan for d/c home today (2) Rh negative, maternal: Rhogam administered 12/24/19 If baby is D-pos, will administer another dose of Rhogam at 72h post delivery Subjective <Jeannette Romero DO - Last Filed: 03/04/20 07:27> Jennifer Springer is a 39 y/o female who is PPD #2 following IOL and epidural with at 38 weeks due to cholestasis in . She reports feeling well overall this morning but does note some persistent diffuse itching that recurred yesterday evening. Minimal abdominal cramping and 0/10 pain well managed on analgesics. Voiding without difficulty or dysuria. Tolerating meals overnight without nausea or vomiting. Patient has been able to ambulate some. + passing gas and - bowel movement. Has persistent lochia with only minimal bleeding morning. Currently . Review of Systems Denies fever or chills. Denies shortness of breath or cough. Denies chest pain. Denies breast pain. Denies dysuria. Denies leg pain or leg swelling. Denies headache or changes in vision. Physical Exam <Jeannette Romero DO - Last Filed: 03/04/20 07:27> General: Alert, oriented. No acute distress. Cardiac: Regular rate and rhythm. No murmurs. Respiratory: Clear to auscultation bilaterally a/p, no wheezes/rales/rhonchi. No increased work of breathing. Symmetrical chest rise. No respiratory distress. Abdomen: Soft, nontender, nondistended. Bowel sounds present. Uterus: Uterine fundus firm, palpable at umbilicus. Lower Extremities: No lower extremity edema or swelling. No deep calf pain. See's negative bilaterally. Results & Data ([facility]) <Jeannette Romero DO - Last Filed: 03/04/20 07:27> Vital Signs (Past 12 Hours) Vital Signs Temp Pulse Resp BP 03/03/20 23:35 36.7 C 76 18 102/66 03/03/20 19:30 36.5 C 80 18 110/61 Laboratory Results H/H at 0611 this mornin.6/27.3 <Keke Patrick MD - Last Filed: 03/04/20 07:45> Co-Signing Physician Notes I have reviewed the resident's note and examined the patient myself, and agree with the note above.
[2020-03-04 06:44] LABS: Hematocrit (blood only) 27.3 % (37-47); Hemoglobin 9.6 g/dL (12.0-16.0)
[2020-03-04] MEDS: FERROUS SULFATE 325 MG TAB PO SCH (08:12)
[2020-03-04] MEDS: DOCUSATE SODIUM 100 MG CAP PO SCH (08:12)
[2020-03-04] MEDS: PRENATAL VITAMIN 1 TAB PO SCH (08:12)
[2020-03-04 08:34] LABS: Albumin Level 2.1 gm/dl (3.4-5.0); Bilirubin Direct 0.3 mg/dl (0-0.2); Bilirubin,Total 0.6 mg/dl (0.2-1); Total Protein 5.5 gm/dl (6.4-8.2)
[2020-03-04] MEDS ORDERED: FERROUS SULFATE 325 MG TAB PO SCH (09:00)
== END 2020-03-04 11:10 | disposition home or self-care (01) | DRG 805 ==
LOC: 4S1 10:09 → 4S2 20:42